=== PATIENT | male | born 2000 | race Two or more races ===

== ENCOUNTER 2022-11-23 07:41 | Outpatient (CLI) | payer OTHER | END 2022-11-23 07:47 | disposition home or self-care (01) | LOC: SONOGRAMA 07:41 | PROVIDERS: ATTEND Pediatrics | DX: R10.10 Upper abdominal pain, unspecified (principal) ==

== ENCOUNTER → 2022-11-23 08:58 | Outpatient (CLI) | payer OTHER | END | disposition home or self-care (01) | LOC: LAB 08:58 | PROVIDERS: ATTEND Pediatrics | DX: R50.9 Fever, unspecified (principal); R30.0 Dysuria; R10.10 Upper abdominal pain, unspecified; E55.9 Vitamin D deficiency, unspecified; Z13.228 Encounter for screening for other metabolic disorders; Z13.29 Encounter for screening for other suspected endocrine disorder ==

== ENCOUNTER 2023-08-13 11:56 | Outpatient (CLI) | payer OTHER ==
[2023-08-13 12:27] LABS: HEMATOCRIT 42.4 % (39.0-48.0); HEMOGLOBIN 14.9 g/dL (13-16.00); MEAN CELL VOLUME 85.7 fL (80.0-100.00); MEAN CORPUSCULAR HEMOGLOBIN 30.1 pg (27.00-32.0); MEAN CORPUSCULAR HGB CONC 35.1 g/dl (32.0-36.0); PLATELET COUNT 310 K/uL (150-450); RED BLOOD COUNT 4.94 M/uL (4.00-6.00); RED CELL DISTRIBUTION WIDTH 13.2 % (11.5-14.5)
[2023-08-13 12:52] LABS: MYCOPLASMA PNEUMONIAE IGM NON REACTIVE (NO REACTIVE)
== END 2023-08-13 11:57 | disposition home or self-care (01) ==
LOC: LAB 11:56
DX: D64.9 Anemia, unspecified (principal); J45.998 Other asthma; R50.9 Fever, unspecified